=== PATIENT | male | born 1970 | race Hispanic/Latino ===

== ENCOUNTER 2017-09-10 14:59 | Emergency (ER) | payer OTHER ==
[2017-09-10] MEDS ORDERED: BSS ONE (19:50)
[2017-09-10] MEDS ORDERED: FUL-GLO OP ONE (19:50)
[2017-09-10] MEDS ORDERED: TETRACAINE 0.5% ONE (19:50)
[2017-09-10 20:25] VITALS: BP 154/101
--- NOTE | 2017-09-10 20:25 | Emergency Department Report ---
ED Eye Problem HPI - General Chief complaint: Eye Problems Stated complaint: TAYLOR TRIPLETT FELL INSIDE (L) EYE Time Seen by Provider: 09/10/17 19:52 Source: patient Mode of arrival: Ambulatory Limitations: No Limitations - History of Present Illness Initial comments: 46-year-old male presents to the emergency room with redness and pain to left eye. Patient reports that he was cleaning the gutters and debris fell into his left eye. Patient reports his a past medical history of kidney stones. Patient reports he takes no medications on a daily basis has no known drug allergies. MD chief complaint: eye pain, eye redness, eye injury, foreign body -: This afternoon If Injury: other (cleaning the gutters) Eye Symptoms: redness, pain, foreign body sensation, photophobia Severity: severe Severity scale (0 -10): 8 If Pain, Quality: aching, stabbing Associated Symptoms: none Treatments Prior to Arrival: irrigated eye - Related Data Patient Tetanus UTD: No Previous Rx's Medication Instructions Recorded Last Taken Type Erythromycin [Erythromycin Ophth 1 applic OP QID 7 Days #1 tube 09/10/17 Unknown Rx Oint] Ibuprofen [Motrin 600 MG tab] 600 mg PO Q8H PRN #30 tablet 09/10/17 Unknown Rx Allergies Allergy/AdvReac Type Severity Reaction Status Date / Time No Known Allergies Allergy Unverified 09/10/17 15:14 ED Review of Systems ROS: Stated complaint: TAYLOR TRIPLETT FELL INSIDE (L) EYE Other details as noted in HPI ED Past Medical Hx - Past Medical History Previous Medical History?: No - Surgical History Past Surgical History?: No - Social History Smoking Status: Never Smoker Substance Use Type: None - Medications Home Medications: Home Medications Medication Instructions Recorded Confirmed Last Taken Type Erythromycin [Erythromycin Ophth 1 applic OP QID 7 Days #1 tube 09/10/17 Unknown Rx Oint] Ibuprofen [Motrin 600 MG tab] 600 mg PO Q8H PRN #30 tablet 09/10/17 Unknown Rx ED Physical Exam - General Limitations: No Limitations General appearance: alert, in no apparent distress - Head Head exam: Present: atraumatic, normocephalic - Eye Eye exam: Present: PERRL, EOMI. Absent: periorbital swelling, periorbital tenderness - Expanded Eye Exam Expanded Eyelids: Normal Inspection: Left Pupils: Regular, Round: Bilateral, Reactive: Bilateral Anterior chamber: Normal Inspection: Bilateral (negative Marbin sign) Visual acuity (R) = 20/: 15 Visual acuity (L) = 20/: 20 With correction: No IOP measured with: other (fluorescein exam positive for coronary abrasion of left eye) - ENT ENT exam: Present: mucous membranes moist - Neck Neck exam: Present: full ROM. Absent: lymphadenopathy ED Course Vital Signs 09/10/17 15:12 Temperature 98.1 F Pulse Rate 82 Respiratory 18 Rate Blood Pressure 165/104 O2 Sat by Pulse 98 Oximetry ED Medical Decision Making - Medical Decision Making Patient has been evaluated by this provider fast track. Dr. Chaparro came to evaluate patient per my request. Discussed the patient that he has a corneal abrasion and that we'll place him on erythromycin eye ointment to use 4 times a day for 7 days. I will give patient a prescription for ibuprofen 800 mg. Encouraged patient to follow up with ophthalmology I will list several below. Patient verbalizes understanding. Critical care attestation.: If time is entered above; I have spent that time in minutes in the direct care of this critically ill patient, excluding procedure time. ED Disposition Clinical Impression: Corneal abrasion, left Qualifiers: Encounter type: initial encounter Qualified Code(s): S05.02XA - Injury of conjunctiva and corneal abrasion without foreign body, left eye, initial encounter Disposition: - TO HOME OR SELFCARE Is pt being admited?: No Does the pt Need Aspirin: No Condition: Stable Instructions: Corneal Abrasion (ED) Additional Instructions: Please take pain medication as prescribed. Please use eye ointment as prescribed. It is very important for you to follow-up with ophthalmology. Please wear protective eye equipment while cleaning gutters and working in the yard. Prescriptions: Erythromycin [Erythromycin Ophth Oint] 1 applic OP QID 7 Days #1 tube Ibuprofen [Motrin 600 MG tab] 600 mg PO Q8H PRN #30 tablet PRN Reason: Pain Referrals: PRIMARY CAREMD [Primary Care Provider] - 3-5 Days MADELYN LAZO MD [Staff Physician] - 3-5 Days [facility] [Provider Group] - 3-5 Days [facility] [Provider Group] - 3-5 Days Forms: Work/School Release Form(ED), Accompanied Note
[2017-09-10] MEDS ORDERED: PERCOCET 5/325 ONE (20:35)
[2017-09-10] MEDS ORDERED: PERCOCET 5/325 PO ONE (20:41)
== END 2017-09-10 20:48 | disposition home or self-care (01) ==
LOC: ED 14:59
DX: S05.02XA Injury of conjunctiva and corneal abrasion without foreign body, left eye, initial encounter (principal); X58.XXXA Exposure to other specified factors, initial encounter; Y93.H1 Activity, digging, shoveling and raking; Y99.8 Other external cause status; Y92.89 Other specified places as the place of occurrence of the external cause
CPT/HCPCS: 99282